=== PATIENT | male | born 1980 | race African-American/Black ===

== ENCOUNTER 2019-09-14 01:04 | Emergency (ER) | payer OTHER, SELFPAY ==
[~2019-09-14] VITALS: Ht 185.4 cm; Wt 127.0 kg
[2019-09-14 01:06] VITALS: Ht 185.4 cm; Wt 127.0 kg
[2019-09-14 03:30] VITALS: BP 137/71
== END 2019-09-14 03:26 | disposition home or self-care (01) ==
LOC: ED 01:04
DX: J20.9 Acute bronchitis, unspecified (principal); F17.210 Nicotine dependence, cigarettes, uncomplicated; Z20.828 Contact with and (suspected) exposure to other viral communicable diseases
CPT/HCPCS: U0003-CS